=== PATIENT | male | born 1975 | race Hispanic/Latino ===

== ENCOUNTER 2025-02-23 15:09 | Emergency (ER) | payer SELFPAY ==
[2025-02-23 15:11] VITALS: BP 165/102
--- NOTE | 2025-02-23 16:53 | ED.GENMED ---
History of Present Illness
General
Chief Complaint: Fall
Source: patient
Exam Limitations: none
Time Seen by Provider: 02/23/25 16:45
Nursing documentation reviewed up to this point in time: agreed with
History of Present Illness
History of Present Illness:
49-year-old male presenting to the emergency department after hitting his left lateral ribs after stepping off his work truck. Immediate pain to the left lateral ribs. Ongoing pain since. No additional symptoms no additional trauma no abdominal
pain no nausea no vomiting. No shortness of breath.
Past History
Past History
ED Past Medical History: Asthma
ED Past Surgical History: None
Social History
Tobacco: Smoker
Alcohol: Daily
Drug: None
Personal:
Living: with family
Employment: Employed
Family History
Family History: Negative Early CAD or Sudden
Review of Systems
Review of Systems
Allergies reviewed?: Yes
All Other Systems: ROS reviewed and negative except as documented in HPI and ROS
Phy Exam
Physical Exam
Physical Exam:
GENERAL: Alert , in no apparent distress
EYE: pupils equal and reactive
NECK: Supple, no significant adenopathy.
ENT: o/p clr, mmm.
CARDIAC: Discomfort palpation left lateral ribs. No overlying skin changes regular rate and rhythm .
LUNGS: Clear breath sounds bilaterally, no acute respiratory distress, no wheezes/rales/rhonchi
ABDOMEN: Soft, without focal tenderness, no r/g, no cvat
NEUROLOGICAL: Alert and oriented, no focal neuro deficits
SKIN: Warm and dry, skin intact.
MUSCULOSKELETAL: No edema, well perfused.
PSYCH: Normal and appropriate interaction.
Course
Orders/Labs/Results
Orders:
Orders
02/23/25 15:13
CR Ribs-left 3 Vw W/pa Chest Urgent
Comment:
Reason For Exam: fall with rib pain
02/23/25 16:45
Incentive Spirometry [Rx Incentive Spirometry] [RESP] Urgent
Frequency: q1h while awake
Vital Signs
Initial and Last Documented VS:
Initial Vital Signs
Temp Pulse Resp BP Pulse Ox
99.1 F 119 18 165/102 98
02/23/25 15:11 02/23/25 15:11 02/23/25 15:11 02/23/25 15:11 02/23/25 15:11
Last Documented Vital Signs
Temp Pulse Resp BP Pulse Ox
99.1 F 119 18 165/102 98
02/23/25 15:11 02/23/25 15:11 02/23/25 15:11 02/23/25 15:11 02/23/25 15:11
MDM/Problems Addressed
MDM/Problems Addressed:
49-year-old male presenting to the emergency department today with concerns of rib discomfort after hitting his ribs jumping off his truck. No additional symptoms lungs are clear mildly tachycardic on arrival but improved without specific
treatment. Normal pulse ox. X-ray showing single rib fracture with no significant displacement. Patient appears stable for outpatient management of this and advised for close outpatient follow-up. Risk and benefit of using opioid for pain was
discussed with the patient. He was given an incentive spirometer.
*Pulse Oximetry
SaO2: 98
Oxygen Mode of Delivery: Room air
Patient hypoxic: no (98)
*Critical Care Note
Total Time (30-74mins, 75-104mins- exclusive of procedures): Not Applicable
ED Attending Note
-
Portions of this chart may have been created with voice recognition software.� Occasional wrong word or��sound alike� substitutions may have occurred due to the inherent limitations of voice recognition software.
Discharge Plan
Departure
Patient Disposition: Home (Routine Discharge)
Date of Disposition: 02/23/25
Time of Disposition: 16:55
Patient with high blood pressure during this ER visit?: No
Condition: Good
Covid-19: Not Applicable
Discharge Problem:
Fracture of rib
Instructions: Rib injury in adults
Prescriptions:
New
oxycodone 5 mg tablet
5 mg PO Q8H PRN (Reason: Pain) Qty: 7 0RF
No Action
atorvastatin 10 MG tablet
10 mg PO QPM Qty: 30 0RF
thiamine HCl (vitamin B1) 100 MG tablet
100 mg PO DAILY Qty: 0 0RF
clopidogrel 75 MG tablet
75 mg PO DAILY Qty: 30 0RF
aspirin 81 MG tablet,delayed release (DR/EC)
81 mg PO DAILY Qty: 0 0RF
lisinopril 10 MG tablet
10 mg PO DAILY Qty: 30 0RF
prednisone 10 MG tablet
10 mg PO .TAPER Qty: 30 0RF
Rx Instructions:
Take 40mg daily x3days, 30mg daily x3days,
20mg daily x3days, 10mg daily x3days.
albuterol sulfate [Proventil HFA] 90 MCG/PUFF HFA aerosol inhaler
1 puff inhalation Q4HPRN PRN (Reason: shortness of breath) Qty: 0 0RF
cyclobenzaprine 10 MG tablet
10 mg PO TIDPRN PRN (Reason: pain) Qty: 20 0RF
albuterol sulfate [Proventil HFA] 90 MCG/PUFF HFA aerosol inhaler
2 puff inhalation Q4HPRN PRN (Reason: shortness of breath) Qty: 1 0RF
prednisone 20 MG tablet
20 mg PO DAILY Qty: 8 0RF
Rx Instructions:
2 tablets a day for 4 days
albuterol sulfate 2.5 MG/3 ML solution for nebulization
2.5 mg inhalation R Q4HPRN PRN (Reason: wheezing) Qty: 1 0RF
Referrals:
UNKNOWN - PT DOES,NOT KNOW [Unknown Provider]
Activity Restrictions/Additional Instructions:
You came to the emergency department today after rib injury. You are found to have a single rib fracture of your ninth rib. Please use the incentive spirometer and treat your pain at home and follow-up closely as an outpatient with your primary
care doctor for reassessment to ensure this is improving properly. Return for any worsening, new or concerning symptoms.
Interventions
Interventions:
*Risk Screen - Suicide Last Done: 02/23/25 15:11
*General Assessment Last Done: 02/23/25 15:11
*Neglect/Abuse Screening Last Done: 02/23/25 15:11
*ED COVID-19 Vaccine History Last Done: 02/23/25 15:11
*ED Influenza Vaccine History Last Done: 02/23/25 15:11
Discharge Date and Time
Print Language: RWANDAN
[2025-02-23] MEDS: TORADOL 15 MG IM (16:55)
== END 2025-02-23 17:20 | disposition home or self-care (01) ==
LOC: EMR 15:09
PROVIDERS: EMERGENCY PHYSICIAN Emergency Medicine; FAMILY PHYSICIAN Internal Medicine
DX: S22.32XA Fracture of one rib, left side, initial encounter for closed fracture (principal); V83.4XXA Person injured while boarding or alighting from special industrial vehicle, initial encounter; Y93.89 Activity, other specified; Y92.89 Other specified places as the place of occurrence of the external cause; Y99.0 Civilian activity done for income or pay; J45.909 Unspecified asthma, uncomplicated; F17.200 Nicotine dependence, unspecified, uncomplicated; Z86.73 Personal history of transient ischemic attack (TIA), and cerebral infarction without residual deficits
CPT/HCPCS: 99284; 96372; 71101